=== PATIENT | female | born 1955 | race Caucasian/White ===

== ENCOUNTER 2021-01-27 07:29 | Inpatient (IN) | payer BC, OTHER ==
[~2021-01-27] VITALS: Ht 172.7 cm; Wt 82.6 kg
[2021-01-27] MEDS ORDERED: SODIUM CHLORIDE 0.9% 1,000 ML IV ONE (07:45)
[2021-01-27] MEDS ORDERED: dilTIAZem 25 MG/5 ML VIAL IV ONE (07:45)
[2021-01-27 08:08] LABS: Basophils # (auto) 0.2 10 ^3/uL (0-0.2); Basophils % (auto) 2.2 % (0.0-2.0); Eosinophils # (auto) 0.2 10 ^3/uL (0-0.8); Eosinophils % (auto) 2.3 % (0.0-7.0); Hematocrit 41.8 % (36.0-46.0); Hemoglobin 14.1 g/dL (12.2-16.2); Lymphocytes % (auto) 15.1 % (10.0-50.0); Mean Corpuscular Hemoglobin 29.8 pg (28.0-32.0); Mean Corpuscular Hgb Conc. 33.8 g/dL (32.0-36.0); Mean Corpuscular Volume 88.2 fL (80.0-100.0); Monocytes # (auto) 0.6 10 ^3/uL (0-1.3); Monocytes % (auto) 8.2 % (0.0-12.0); Neutrophils % (auto) 72.2 % (37.0-80.0); Nucleated Red Blood Cells % 0.1 %; Platelet Count (auto) 306 10^3/uL (140-450); Red Blood Cells 4.74 10^6/uL (4.0-5.20); Red Cell Distribution Width 16.5 % (11.8-14.3); White Blood Cell 6.9 10^3/uL (4.4-10.8)
[2021-01-27 08:24] LABS: Albumin 3.4 g/dL (3.4-5.0); Anion Gap 16 (5-15); BUN/Creatinine Ratio 14.3; Blood Urea Nitrogen 6 mg/dL (7-18); Calcium 8.4 mg/dL (8.5-10.1); Carbon Dioxide 17 mmol/L (21-32); Chloride 104 mmol/L (98-107); GFR African American 195 mL/min; GFR Non-African American 161 mL/min; Glucose 73 mg/dL (74-106); Potassium 3.4 mmol/L (3.5-5.1); Sodium 137 mmol/L (136-145)
[2021-01-27 08:28] LABS: Alanine Aminotransferase 27 U/L (13-56); Alkaline Phosphatase 124 U/L (45-117); Aspartate Aminotransferase 74 U/L (15-37); Bilirubin, Total 0.8 mg/dL (0.2-1.0); Total Protein 7.4 g/dL (6.4-8.2)
[2021-01-27 08:35] LABS: INR 1.04 (0.9-1.15); Partial Thromboplastin Time 29.8 sec (23.0-31.2)
[2021-01-27 10:10] LABS: Urine Bacteria FEW /hpf (None Seen); Urine Blood Negative /uL (Negative); Urine Specific Gravity 1.009 (1.001-1.035); Urine WBC 1 /hpf (0 - 5)
[2021-01-27] MEDS ORDERED: NITROGLYCERIN 0.4 MG SL TAB SL PRN (11:30)
[2021-01-27] MEDS ORDERED: HYDROcodone-ACET 5/325MG TAB PO PRN (11:30)
[2021-01-27] MEDS ORDERED: MORPHINE SULF INJ 2 MG/ML SYRINGE 1ML IV PRN ×2 (11:30)
[2021-01-27] MEDS: THIAMINE HCL 100 MG TAB PO SCH (11:48)
[2021-01-27] MEDS: METOPROLOL TARTRATE 25 MG TAB PO SCH ×2 (11:48→21:55)
[2021-01-27] MEDS: MULTIPLE VITAMIN TAB PO SCH (11:48)
[2021-01-27] MEDS ORDERED: POTASSIUM EFFERVESENT TAB 25 MEQ PO ONE (12:45)
[2021-01-27 13:00] VITALS: BP 140/79
[2021-01-27 13:05] LABS: Amphetamine Screen, Urine NEGATIVE (NEGATIVE); Barbiturate Scree,Urine NEGATIVE (NEGATIVE); Benzodiazephine Screen, Urine NEGATIVE (NEGATIVE); Cannabinoid Screen, Urine NEGATIVE (NEGATIVE); Cocaine Screen, Urine NEGATIVE (NEGATIVE); Opiate Scree,Urine NEGATIVE (NEGATIVE); Phencyclidine Screen, Urine NEGATIVE (NEGATIVE)
[2021-01-27 13:30] VITALS: BP 140/79
[2021-01-27 13:35] LABS: Cholesterol 264 mg/dL (< 200); HDL Cholesterol 180 mg/dL (40-59); LDL Cholesterol 60 mg/dL (< 100); Triglycerides 28 mg/dL (< 150)
[2021-01-27] MEDS ORDERED: IBUP800T27 PO (14:17)
[2021-01-27] MEDS ORDERED: ALBUAER3 IN (14:17)
[2021-01-27] MEDS ORDERED: FLUT100I IN (14:17)
[2021-01-27 17:00] VITALS: BP 154/88
[2021-01-27 20:00] VITALS: BP 151/80
[2021-01-27] MEDS: ATORVASTATIN 20 MG TAB PO SCH (21:55)
[2021-01-27] MEDS: DOCUSATE SOD 100 MG CAP PO SCH (21:55)
[2021-01-27 22:00] VITALS: BP 151/80
[2021-01-27] MEDS: hydrALAZINE HCL 20 MG/ML VL IV PRN (22:58)
[2021-01-28] VITALS (7 sets, daily range): BP systolic 135–160; BP diastolic 75–90
[2021-01-28] MEDS: hydrALAZINE HCL 20 MG/ML VL IV PRN (05:56)
[2021-01-28 07:16] LABS: Basophils # (auto) 0.1 10 ^3/uL (0-0.2); Basophils % (auto) 0.8 % (0.0-2.0); Eosinophils # (auto) 0.2 10 ^3/uL (0-0.8); Eosinophils % (auto) 2.3 % (0.0-7.0); Hematocrit 37.8 % (36.0-46.0); Hemoglobin 12.7 g/dL (12.2-16.2); Lymphocytes # (auto) 0.9 10 ^3/uL (0.4-5.4); Lymphocytes % (auto) 14.1 % (10.0-50.0); Mean Corpuscular Hemoglobin 29.4 pg (28.0-32.0); Mean Corpuscular Hgb Conc. 33.5 g/dL (32.0-36.0); Mean Corpuscular Volume 87.8 fL (80.0-100.0); Monocytes % (auto) 15.2 % (0.0-12.0); Neutrophils # (auto) 4.5 10 ^3/uL (1.6-8.6); Neutrophils % (auto) 67.6 % (37.0-80.0); Platelet Count (auto) 273 10^3/uL (140-450); Red Cell Distribution Width 16.3 % (11.8-14.3); White Blood Cell 6.7 10^3/uL (4.4-10.8)
[2021-01-28 07:45] LABS: Potassium 3.2 mmol/L (3.5-5.1)
[2021-01-28 07:51] LABS: BUN/Creatinine Ratio 25.7; Calcium 8.9 mg/dL (8.5-10.1)
[2021-01-28] MEDS ORDERED: ADENOSINE 68 MG in GIVE UN-DILUTED 0 ML IV STA (08:20)
[2021-01-28] MEDS: METOPROLOL TARTRATE 25 MG TAB PO SCH ×2 (10:58→21:52)
[2021-01-28] MEDS: MULTIPLE VITAMIN TAB PO SCH (10:58)
[2021-01-28] MEDS: ACETAMINOPHEN 500 MG TAB PO PRN (10:58)
[2021-01-28] MEDS: ASPirin-EC 81 mg tab PO SCH (10:58)
[2021-01-28] MEDS: THIAMINE HCL 100 MG TAB PO SCH (10:59)
[2021-01-28] MEDS: DOCUSATE SOD 100 MG CAP PO SCH ×2 (10:59→21:51)
[2021-01-28] MEDS: ATORVASTATIN 20 MG TAB PO SCH (21:51)
[2021-01-29] MEDS: hydrALAZINE HCL 20 MG/ML VL IV PRN (00:39)
[2021-01-29 05:00] VITALS: BP 143/79
[2021-01-29 08:00] VITALS: BP 139/81
[2021-01-29 09:00] VITALS: BP 139/81
[2021-01-29] MEDS: ASPirin-EC 81 mg tab PO SCH (09:11)
[2021-01-29] MEDS: DOCUSATE SOD 100 MG CAP PO SCH (09:12)
[2021-01-29] MEDS: THIAMINE HCL 100 MG TAB PO SCH (09:12)
[2021-01-29] MEDS: METOPROLOL TARTRATE 25 MG TAB PO SCH (09:12)
[2021-01-29] MEDS: MULTIPLE VITAMIN TAB PO SCH (09:12)
[2021-01-29] MEDS: ACETAMINOPHEN 500 MG TAB PO PRN (09:13)
[2021-01-29] MEDS ORDERED: POTASSIUM EFFERVESENT TAB 25 MEQ GT ONE (10:15)
[2021-01-29] MEDS ORDERED: LISINOPRIL 10 MG TAB PO ONE (10:15)
[2021-01-29 12:38] VITALS: BP 135/86
[2021-01-29 13:49] VITALS: BP 135/86
[2021-01-30] MEDS ORDERED: LISINOPRIL 10 MG TAB PO SCH (10:00)
== END 2021-01-29 14:50 | disposition home or self-care (01) | DRG 309 ==
LOC: EDBD 07:29 → ER 07:29 → TELE 11:19 → TELE-WESTW 13:20
PROVIDERS: ADMIT Nurse Practitioner Acute Care; ATTEND Family Medicine
DX: I48.0 Paroxysmal atrial fibrillation (principal); S22.41XA Multiple fractures of ribs, right side, initial encounter for closed fracture; E78.00 Pure hypercholesterolemia, unspecified; E87.6 Hypokalemia; J45.909 Unspecified asthma, uncomplicated; Z20.822 Contact with and (suspected) exposure to COVID-19; I10 Essential (primary) hypertension; E78.5 Hyperlipidemia, unspecified; X58.XXXA Exposure to other specified factors, initial encounter; Y93.89 Activity, other specified; Z83.3 Family history of diabetes mellitus; Y92.89 Other specified places as the place of occurrence of the external cause; Y99.8 Other external cause status
CPT/HCPCS: 36415; 71045; 71250; 78452; 80048; 80053; 80061; 80307; 81001; 83735; 83880; 84443; 84484; 85025; 85610; 85730; 86141; 87426; 93005; 93017; 93306; 96361; 96374; 99291; G0378; J0153